=== PATIENT | male | born 2000 | race Caucasian/White ===

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

== ENCOUNTER 2021-05-11 01:11 | Observation (INO) ==
[2021-05-11] MEDS ORDERED: SODIUM CHLORIDE 0.9% 1000ML 1,000 ML IV STA (01:24)
[2021-05-11] MEDS ORDERED: ONDANSETRON INJ 2 MG/ML 2 ML VIAL IV STA (01:24)
[2021-05-11] MEDS ORDERED: MoRPHine SULFATE 4 MG/ML 1 ML CARP\\VIAL IV STA (01:24)
--- NOTE | 2021-05-11 01:28 | Emergency Department Note ---
Impression & Plan Abdominal pain, Acute appendicitis ADMIT ED Provider Note HPI: The patient is a 21-year-old male presents to the emergency department with a chief complaint of abdominal pain. Patient states that about 6 to 7 hours prior to presentation he developed some periumbilical abdominal discomfort, states he has had some nausea. States the pain has worsens and moved somewhat to the right side of his abdomen. On arrival to the ED the patient is tachycardic but otherwise hemodynamically stable, he is saturating well on room air. ROS: - GI: Abdominal pain, right lower quadrant *10 point review systems was conducted and is otherwise negative unless stated above *Outpatient medications and allergy history reviewed PE: General: Alert, NAD HEENT: Normocephalic, atraumatic Eyes: Extraocular eye movement is intact, no scleral erythema Pulmonary: Clear to auscultation bilaterally, no wheezing Cardio: Regular rate and rhythm GI: Abdomen is soft, Moderate tenderness in the right lower quadrant to palpation Without guarding or rigidity : No suprapubic tenderness MSK: No evidence of trauma or malformation of the extremities, no edema Skin: No evidence of rash Neuro: Alert, no focal deficits Psychiatric: Cooperative nurse monitoring: - An order was placed for continuous cardiac monitoring - Patient was noted to be in sinus rhythm with rate of 100 CT ABDOMEN & PELVIS With Contrast: Mild dilatation of the appendix measuring 8 mm with minimal adjacent stranding. No evidence of perforation. Findings may be due to appendicitis. Consider c orrelation with laboratory values and physical exam. No evidence of perforation. Colonic diverticulosis. Cholecystectomy changes. Apparent bladder wall thickening which is favored to relate to underdistention. Mild respiratory motion artifact. Radiologist: Hussain Miguel MD Medical Decision Making: The patient is a 21-year-old male who presents emergency department chief complaint of right lower quadrant abdominal pain. States he is also had some nausea. Denies any vomiting or diarrhea.IV was established, lab work obtained, patient is noted to have a leukocytosis of approximately 16,000, patient was given morphine and Zofran here in the ED for his symptoms, he was also given IV fluid bolus. CT imaging of the abdomen pelvis was obtained and shows evidence of acute appendicitis with dilation of the appendix at 8 mm without any evidence of perforation or abscess. Given the patient's location of his pain with leukocytosis and this finding on CT imaging I do believe he likely has acute appendicitis. I discussed the case with on-call general surgery, Dr. Pickett, who is in agreement to evaluate the patient for operative intervention. Patient will be admitted to the general surgery service, COVID-19 test was ordered. I discussed the above findings with the patient and his mother at the bedside, he is in agreement for operative intervention and admission. Patient was admitted in stable condition. Diagnosis: 1. Acute appendicitis 2. Acute abdominal pain 3. Nausea Disposition: Admission Kaden Alexander DO Emergency Medicine Past Med/Surg History Social History Smoking Status: Current some day smoker Preferred Language: Nigerian Feels Safe at Home: Yes Allergies Allergies Allergy/AdvReac Type Severity Reaction Status Date / Time No Known Allergies Allergy Unverified 06/24/16 17:14 Home Meds Home Medications Medication Instructions Recorded Confirmed No Known Home Medications 05/11/21 05/11/21 Results & Data (ED) Vital Signs Vital Signs - 24 hr 05/11/21 01:19 05/11/21 01:34 05/11/21 02:00 Temperature 36.9 C Temperature Source Temporal Artery Scan Pulse Rate 111 H 87 Respiratory Rate 18 18 Respiratory Depth Normal Blood Pressure 157/87 H 144/91 H Blood Pressure Mean 110 108 Pulse Oximetry 98 97 97 Oxygen Delivery Method Room Air Room Air Sepsis Recent Fever Within 48 Hours No Sepsis New/Unexplained Change in Mental Status N/A Sepsis Action Taken by Nursing No Action Required Laboratory Data Result diagrams: 05/11/21 01:35 05/11/21 01:35 Lab Results 05/11/21 05/11/21 05/11/21 Range/Units 01:35 01:35 01:40 WBC 16.09 H (4.8-10.8) K/uL RBC 5.74 (4.7-6.1) M/uL Hgb 17.7 (14.0-18.0) g/dL Hct 49.1 (42-52) % MCV 85.5 (80-100) fL MCH 30.8 (25-34) pg MCHC 36.0 (32-36) g/dL RDW Std Deviation 41.4 (36.4-46.3) fL RDW Coeff of Mukund 13.4 (11.5-14.5) % Plt Count 221 (130-400) K/uL MPV 10.7 H (7.4-10.4) fL Immature Gran % (Auto) 0.1 % Neut % (Auto) 75.5 % Lymph % (Auto) 17.4 % [place] % (Auto) 6.3 % Eos % (Auto) 0.5 % Baso % (Auto) 0.2 % Neut # (Auto) 12.13 H (1.4-6.5) K/uL Lymph # (Auto) 2.80 (1.2-3.4) K/uL [place] # (Auto) 1.02 H (0.11-0.59) K/uL Eos # (Auto) 0.08 (0-0.5) K/uL Baso # (Auto) 0.04 (0-0.2) K/uL Immature Gran # (Auto) 0.02 (0.00-0.02) K/uL Sodium 137 (136-145) mmol/L Potassium 3.4 L (3.5-5.1) mmol/L Chloride 101 (98-107) mmol/L Carbon Dioxide 27 (21-32) mmol/L Anion Gap 9 (3-11) BUN 16 (6-23) mg/dl Creatinine 0.85 (0.6-1.4) mg/dl Est Cr Clr Drug Dosing 186.4 ml/min Est GFR ( Amer) 144.4 ml/min Est GFR (Non-Af Amer) 124.6 ml/min BUN/Creatinine Ratio 18.8 (10-20) Glucose 93 (70-99(Fasting)) mg/dl Calcium 9.4 (8.5-10.1) mg/dl Total Bilirubin 1.0 (0.2-1.0) mg/dl AST 19 (13-39) U/L ALT 39 (7-52) U/L Alkaline Phosphatase 93 (34-104) U/L Total Protein 7.7 (6.0-8.3) gm/dl Albumin 4.9 (3.4-5.0) gm/dl Globulin 2.8 (2.5-4.0) gm/dl Albumin/Globulin Ratio 1.8 (0.9-2) Lipase 17 (11-82) U/L Urine Color Yellow Urine Appearance Clear (Clear) Urine pH 6.5 (4.5-7.5) Ur Specific [place] 1.024 (1.000-1.030) Urine Protein Negative (Negative) Urine Glucose (UA) Negative (Negative) Urine Ketones Trace H (Negative) Urine Blood Negative (Negative) Urine Nitrite Negative (Negative) Urine Bilirubin Negative (Negative) Urine Urobilinogen Negative (Negative) Ur Leukocyte Esterase Negative (Negative) Administered Medications Discontinued Medications Sodium Chloride (Nss 1000ml) 1,000 mls @ 999 mls/hr IV .Q1H1M STA Stop: 05/11/21 02:24 Last Infusion: 05/11/21 02:53 Dose: 0 mls/hr Documented by: [id number] Admin: 05/11/21 01:43 Dose: 999 mls/hr Documented by: [id number] Ioversol (Optiray 320 100ml) 95 ml IV ONCE ONE Stop: 05/11/21 02:37 Last Admin: 05/11/21 02:33 Dose: 95 ml Documented by: [id number] Morphine Sulfate (Morphine Sulfate 4 Mg/Ml 1 Ml Carp\Vial) 4 mg IV NOW STA Stop: 05/11/21 01:25 Last Admin: 05/11/21 01:43 Dose: 4 mg Documented by: [id number] Ondansetron HCl (Ondansetron Inj 2 Mg/Ml 2 Ml Vial) 4 mg IV NOW STA Stop: 05/11/21 01:25 Last Admin: 05/11/21 01:42 Dose: 4 mg Documented by: [id number] Discharge Plan Visit Data Chief Complaint: GI Assessment Stated Complaint: ABD PAIN,NAUSEA,CONSTIPATION ED Provider: Kaden Alexander Discharge Problem: Abdominal pain, Acute appendicitis Forms Stand Alone Forms: [facility] [employer] Prescriptions Prescriptions: No Action No Known Home Medications RF: 0 Referrals Referrals: Ernesto Cortez [Outside Practitioners] -
[2021-05-11 01:53] LABS: Basophils # (auto) 0.04 K/uL (0-0.2); Basophils % (auto) 0.2 %; Eosinophils # (auto) 0.08 K/uL (0-0.5); Eosinophils % (auto) 0.5 %; Hematocrit (blood only) 49.1 % (42-52); Hemoglobin 17.7 g/dL (14.0-18.0); Immature Granulocytes # (auto) 0.02 K/uL (0.00-0.02); Immature Granulocytes % (auto) 0.1 %; Lymphocytes % (auto) 17.4 %; Mean Corpuscular Hemoglobin 30.8 pg (25-34); Mean Corpuscular Volume 85.5 fL (80-100); Mean Platelet Volume 10.7 fL (7.4-10.4); Monocytes # (auto) 1.02 K/uL (0.11-0.59); Monocytes % (auto) 6.3 %; Neutrophils # (auto) 12.13 K/uL (1.4-6.5); Neutrophils % (auto) 75.5 %; Platelet Count 221 K/uL (130-400); RDW Coefficient of Variation 13.4 % (11.5-14.5); RDW Standard Deviation 41.4 fL (36.4-46.3); Red Blood Count 5.74 M/uL (4.7-6.1); White Blood Count 16.09 K/uL (4.8-10.8)
[2021-05-11 01:58] LABS: Appearance Urine Clear (Clear); Bilirubin Urine Negative (Negative); Blood Urine Negative (Negative); Color Urine Yellow; Glucose Urine UA Negative (Negative); Ketones Urine Trace (Negative); Leukocyte Esterase Urine Negative (Negative); Nitrite Urine Negative (Negative); Protein Urine Negative (Negative); Specific Gravity Urine 1.024 (1.000-1.030); Urobilinogen Urine Negative (Negative); pH Urine 6.5 (4.5-7.5)
[2021-05-11 02:24] LABS: Albumin Globulin Ratio 1.8 (0.9-2); Albumin Level 4.9 gm/dl (3.4-5.0); BUN Creatinine Ratio 18.8 (10-20); Calcium 9.4 mg/dl (8.5-10.1); Creatinine Clr Calc Pharmacy 186.4 ml/min; Est GFR (African American) 144.4 ml/min; Est GFR (Non-African American) 124.6 ml/min; Globulin 2.8 gm/dl (2.5-4.0); Potassium 3.4 mmol/L (3.5-5.1); Total Protein 7.7 gm/dl (6.0-8.3)
[2021-05-11] MEDS ORDERED: OPTIRAY 320 100ml IV ONE (02:36)
[2021-05-11] MEDS ORDERED: PIPERACILL/TAZOBAC CONSULT ACTIVE PRN (03:25)
[2021-05-11] MEDS ORDERED: SODIUM CHLORIDE 0.9% 1000ML 1,000 ML IV ONE (03:25)
[2021-05-11] MEDS ORDERED: PIPERACILLIN/TAZOBACTAM 4.5 GM/120 ML BAG IV ONE (03:25)
[2021-05-11] MEDS ORDERED: CIPROFLOXACIN / D5W 400 MG/200 ML BAG IV STA (03:57)
--- NOTE | 2021-05-11 04:36 | Surgery Consultation ---
Date of Consultation May 11, 2021 Assessment & Plan (1) Acute appendicitis: pt is a 21 year-old male who presents to ER with one day history acute abdominal pain, IMP: acute appendicitis, plan, I recommend to do laparoscopic appendectomy, possible open , D/W benefits, risks and alternatives of the surgery, the risks- infection, bleeding, injury other organs, abscess, incisional hernia, pt understood, he agrees with the surgery, he signed informed consent, I answered all questions, pre-op antibiotic. History of Present Illness Reason for Consultation: acute appendicitis Requesting Physician: Kaden Alexander MD History of Present Illness HPI: The patient is a 21-year-old male presents to the emergency department with a chief complaint of abdominal pain. Patient states that about 6 to 7 hours prior to presentation he developed some periumbilical abdominal discomfort, states he has had some nausea. States the pain has worsens and moved somewhat to the right side of his abdomen. On arrival to the ED the patient is tachycardic but otherwise hemodynamically stable, he is saturating well on room air. I ( Bonilla Pickett MD ) got a call for consult acute appendicitis, I reviewed pt's H/P, labs, CT scan with pt, pt is still Have RLQ pain, ROS: - GI: Abdominal pain, right lower quadrant *10 point review systems was conducted and is otherwise negative unless stated above *Outpatient medications and allergy history reviewed Past Med/Surg History Social History Smoking Status: Current some day smoker Preferred Language: Trinidadian Feels Safe at Home: Yes Allergies Allergies Allergy/AdvReac Type Severity Reaction Status Date / Time No Known Allergies Allergy Unverified 06/24/16 17:14 Home Meds Home Medications Medication Instructions Recorded Confirmed No Known Home Medications 05/11/21 05/11/21 Results & Data (ED) Vital Signs Vital Signs - 24 hr 05/11/21 01:19 05/11/21 01:34 05/11/21 02:00 TemperatureC 36.9 C Temperature Source Temporal Artery Scan Pulse Rate 111 H 87 Respiratory Rate 18 18 Respiratory Depth Normal Blood Pressure 157/87 H 144/91 H Blood Pressure Mean 110 108 Pulse Oximetry 98 97 97 Oxygen Delivery Method Room Air Room Air Sepsis Recent Fever Within 48 Hours No Sepsis New/Unexplained Change in Mental Status N/A Sepsis Action Taken by Nursing No Action Required Allergies Allergy/AdvReac Type Severity Reaction Status Date / Time No Known Allergies Allergy Unverified 06/24/16 17:14 Home Medications Medication Instructions Recorded Confirmed Type No Known Home Medications 05/11/21 05/11/21 History Patient History Social History Smoking Status: Current some day smoker Preferred Language: Trinidadian Feels Safe at Home: Yes Physical Exam Constitutional: WD/WN, vitals as above Eyes: PERRL, conjunctivae normal, anicteric sclerae Neck: trachea midline, no thyromegaly Respiratory: normal respiratory effort, lungs clear to auscultation Cardiovascular: RRR, no murmur, no edema Gastrointestinal (Abdomen): soft, tenderness at RLQ, no rebound pain, BS +, no distend Musculoskeletal: no cyanosis or clubbing, extremities motor strength 5/5 Neurologic: patellar DTR's 2+ bilat, sensation intact Psychiatric: A+Ox3, euthymic affect Results & Data ([facility]) Vital Signs (Past 12 Hours) Vital Signs Temp Pulse Resp BP Pulse Ox 05/11/21 03:00 79 16 139/80 98 05/11/21 02:00 87 18 144/91 H 97 05/11/21 01:34 97 05/11/21 01:19 36.9 C 111 H 18 157/87 H 98 Laboratory Results Abnormal lab results 05/11/21 05/11/21 05/11/21 Range/Units 01:35 01:35 01:40 WBC 16.09 H (4.8-10.8) K/uL MPV 10.7 H (7.4-10.4) fL Neut # (Auto) 12.13 H (1.4-6.5) K/uL [place] # (Auto) 1.02 H (0.11-0.59) K/uL Potassium 3.4 L (3.5-5.1) mmol/L Urine Ketones Trace H (Negative) Diagnostic Findings CT ABDOMEN & PELVIS With Contrast: Mild dilatation of the appendix measuring 8 mm with minimal adjacent stranding. No evidence of perforation. Findings may be due to appendicitis. Consider correlation with laboratory values and physical exam. No evidence of perforation. Colonic diverticulosis. Cholecystectomy changes. Apparent bladder wall thickening which is favored to relate to underdistention. Mild respiratory motion artifact. (1) Acute appendicitis Acute appendicitis type: unspecified acute appendicitis type Qualified Code(s): K35.80 - Unspecified acute appendicitis
--- NOTE | 2021-05-11 04:46 | History & Physical Bridge Note ---
Date of Service May 11, 2021 History & Physical Bridge Note I have examined the patient, reviewed the History & Physical and in the interval since the performance of the History & Physical I have noted the following changes of clinical significance: no changes noted
[2021-05-11] MEDS ORDERED: BUPIVACAINE 0.5 % 5 MG/1 ML MPF 30ML VIAL ONE (05:15)
[2021-05-11] MEDS ORDERED: BACITRACIN OINT 15 GM TUBE ONE (05:15)
[2021-05-11] MEDS ORDERED: LIDOCAINE 1% LOCAL 20 ML VIAL ONE (05:15)
[2021-05-11] MEDS ORDERED: ONDANSETRON INJ 2 MG/ML 2 ML VIAL IV PRN ×2 (05:25→06:49)
[2021-05-11] MEDS ORDERED: ePHEDrine sulfate 50 MG/ML AMP IV PRN (05:25)
[2021-05-11] MEDS ORDERED: ATROPINE SULFATE 0.1 MG/ML 10ML SYR IV PRN (05:25)
[2021-05-11] MEDS ORDERED: PROMETHAZINE HCL 6.25 MG in SODIUM CHLORIDE 0.9% 50 ML IV PRN (05:25)
--- NOTE | 2021-05-11 05:27 | Anesthesiology Consultation ---
Date of Service May 11, 2021 Assessment & Plan Chart Review Chart Review: Acceptable Risk for Surgery and Patient NOT seen in Pre Admission Testing Consults Requested none ASA ASA2E Proposed Anesthesia Anesthesia Type: General Risk / Benefits Reviewed With: PT / POA / Parent / Guardian, Accepts Plan and Informed Consent Obtained History Surgery Operation Date: 05/11/21 05:05 Proposed Procedures p Laparoscopic Appendectomy - Bonilla Pickett MD Height/Weight Height: 6 ft Weight: 123.3 kg Allergies Allergy/AdvReac Type Severity Reaction Status Date / Time No Known Allergies Allergy Unverified 06/24/16 17:14 Medications Home Medications Medication Instructions Recorded Confirmed Last Taken No Known Home Medications 05/11/21 05/11/21 Unknown Active Medications Generic Name Dose Route Start Last Admin Trade Name Freq PRN Reason Stop Dose Admin Ciprofloxacin 400 mg in 200 mls @ 100 mls/hr 05/11/21 03:57 05/11/21 04:06 Cipro / D5w IV 05/11/21 05:56 100 mls/hr NOW STA Administration Protocol NPO Date Last Intake of Fluids: 05/10/21 Time Last Intake of Fluids: 23:50 Date Last Intake of Solids: 05/10/21 Time Last Intake of Solids: 17:00 Exercise / Class Metabolic Activity II 4-5 Yardwork/Stairs/Walk up hill Past Anesthesia History No Hx of Anesthesia Complications and No Family Hx of Anesthesia Complications History of PONV No Hx of PONV and No Hx of Motion Sickness Social History Smoking Status: Current some day smoker Physical Exam Vital Signs Last Vital Signs Temp 36.9 C 05/11/21 01:19 Pulse 81 05/11/21 05:00 Resp 16 05/11/21 05:00 BP 155/86 H 05/11/21 04:00 Pulse Ox 98 05/11/21 04:00 Constitutional + obese ENMT Mouth: no dentition abnormality Thyromental Distance: > or= 3.5 Finger Breadths Mallampati Class: II Neck normal visual inspection and + facial hair Respiratory normal respiratory effort Auscultation: lungs clear to auscultation bilaterally Cardiovascular Rate/Rhythm: regular rate and regular rhythm Psychiatric Orientation: alert Testing Laboratory Results 05/11/21 01:35 05/11/21 01:35 Urine Color Yellow 05/11/21 01:40 Urine Appearance Clear (Clear) 05/11/21 01:40 Urine pH 6.5 (4.5-7.5) 05/11/21 01:40 Ur Specific [place] 1.024 (1.000-1.030) 05/11/21 01:40 Urine Protein Negative (Negative) 05/11/21 01:40 Urine Glucose (UA) Negative (Negative) 05/11/21 01:40 Urine Ketones Trace (Negative) H 05/11/21 01:40 Urine Nitrite Negative (Negative) 05/11/21 01:40 Ur Leukocyte Esterase Negative (Negative) 05/11/21 01:40
[2021-05-11] MEDS ORDERED: fentaNYL citrate 100 MCG/2 ML VIAL ONE (05:40)
[2021-05-11] MEDS ORDERED: MoRPHine SULFATE PF 1 MG/ML 10 ML AMP/VIAL ONE (05:57)
[2021-05-11] MEDS ORDERED: SUCCINYLCHOLINE CHLORIDE 20 MG/ML 10 ML VIAL IV ONE (06:27)
[2021-05-11] MEDS ORDERED: NEOSTIGMINE METHYLSULFATE 1 MG/ML 10ML VIAL ONE (06:27)
[2021-05-11] MEDS ORDERED: GLYCOPYRROLATE 0.2 MG/ML VIAL ONE (06:27)
[2021-05-11] MEDS ORDERED: LIDOCAINE 2% 2 ML VIAL/AMP(20MG/ML) INFIL ONE (06:27)
[2021-05-11] MEDS ORDERED: PROPOFOL IV EMULSION 10 MG/ML 20 ML VIAL IV ONE (06:27)
[2021-05-11] MEDS ORDERED: ROCURONIUM BROMIDE 10 MG/ML 5 ML VIAL IV ONE (06:27)
[2021-05-11] MEDS ORDERED: DEXAMETHASONE SOD INJ 4 MG/ML VIAL ONE (06:27)
[2021-05-11] MEDS ORDERED: ONDANSETRON INJ 2 MG/ML 2 ML VIAL ONE (06:27)
--- NOTE | 2021-05-11 06:48 | Post Operative Brief Note ---
Immediate Post Op Note v1 Date of Surgery May 11, 2021 Pre & Post Diagnosis Operation Date: 05/11/21 05:05 Pre-Op Diagnosis: Acute appendicitis Post-Op Diagnosis: Acute appendicitis I identified the patient and participated in the time-out.: Yes Procedure Operation Date: 05/11/21 05:05 Actual Procedures p Laparoscopic Appendectomy(Not Applicable) - Bonilla Pickett MD Surgeon Bonilla Pickett MD [employer] certified surgical tech/first assistant Estimated Blood Loss 10 Findings Consistent with Post-Op Diagnosis Specimens appendix Anesthesia Type General Complications none Disposition Accompanied Patient To Recovery: Yes
--- NOTE | 2021-05-11 06:55 | Anesthesiology Progress Note ---
Date of Service May 11, 2021 Anesthesia Post Procedure Vital Signs Vital Signs: Temp Pulse Pulse Resp BP BP Pulse Ox 05/11/21 06:46 36.0 C L 78 14 152/84 H 98 05/11/21 05:30 78 18 136/86 98 05/11/21 05:00 81 16 05/11/21 04:00 78 15 155/86 H 98 05/11/21 03:00 79 16 139/80 98 05/11/21 02:00 87 18 144/91 H 97 05/11/21 01:34 97 05/11/21 01:19 36.9 C 111 H 18 157/87 H 98 Pain Intensity Abdomen: Pain Intensity: 5 Transfer of Care Handoff Completed per policy Notes Mental Status: alert / awake / arousable Patient Amnestic to Procedure: Yes Nausea / Vomiting: adequately controlled Pain: adequately controlled Airway Patency, RR, SpO2: stable & adequate BP & HR: stable & adequate Hydration State: stable & adequate Anesthetic Complications: no major complications apparent
[2021-05-11] MEDS: fentaNYL citrate 100 MCG/2 ML VIAL IV PRN ×2 (07:03→07:30)
[2021-05-11] MEDS ORDERED: LACTATED RINGER'S 1,000 ML IV SCH (08:18)
[2021-05-11] MEDS ORDERED: oxyCODONE/ACETAMINOPHEN 5mg/325mg TAB PO PRN (08:18)
[2021-05-11] MEDS ORDERED: HYDROmorphone INJ 0.5 MG/0.5 ML SYR IV PRN (08:18)
--- NOTE | 2021-05-11 08:21 | CT Scan Report ---
CT OF THE ABDOMEN AND PELVIS WITH CONTRAST CLINICAL HISTORY: Right lower quadrant abdominal pain. COMPARISON STUDY: None. TECHNIQUE: Following IV administration of 95 mL of Optiray, axial images of the abdomen and pelvis we re obtained from the lung bases to the proximal femurs. Images were reviewed in the axial, sagittal, and coronal planes. IV contrast was administered without complication. Automated exposure control wa s utilized for the study. A dose lowering technique was utilized adhering to the principles of ALARA . CT DOSE: 1314.74 mGy.cm FINDINGS: Lung bases are unremarkable. No pneumatosis, free air or portal venous gas is present. Ther e is no biliary ductal dilatation status post cholecystectomy. Possible hepatic steatosis. Spleen is mildly enlarged. The adrenal glands, kidneys and pancreas are normal. There is no hydronephrosis. The re is no evidence for a bowel obstruction. The appendix is mildly dilated, measuring 9 mm in caliber. There is subtle periappendiceal infiltration. The appendiceal wall is thickened. There is no free ai r or abscess. Colonic diverticulosis is noted without evidence for acute diverticulitis. Major vascul ature is patent. No acute fracture or suspicious lesion is identified within the visualized skeletal structures. IMPRESSION: Findings consistent with early acute appendicitis. No free air or abscess. ACT 112: Negative or not required by law. Electronically signed by: Raudel Connolly M.D. 05/11/2021 8:19 AM
[2021-05-11] MEDS ORDERED: CIPROFLOXACIN / D5W 400 MG/200 ML BAG IV SCH ×2 (08:45→12:00)
[2021-05-11] MEDS ORDERED: SUCRALFATE 1 GM TAB PO SCH (09:30)
[2021-05-11] MEDS ORDERED: CHOLESTYRAMINE LIGHT 4 GM PKT PO SCH (10:00)
--- NOTE | 2021-05-11 10:45 | Operative Report (OR) ---
DATE OF SURGERY: 05/11/2021 PREOPERATIVE DIAGNOSIS: Acute appendicitis. POSTOPERATIVE DIAGNOSIS: Acute appendicitis. OPERATION: Laparoscopic appendectomy. SURGEON: Bonilla Pickett MD. ANESTHESIA: General. ESTIMATED BLOOD LOSS: About 10 mL. FINDINGS: Acute appendicitis. COMPLICATIONS: None. INDICATIONS OF THE PROCEDURE: This is a 21-year-old gentleman who presented to the ED with 1-day his tory of acute abdominal pain. The patient had a CT scan diagnosis of acute appendicitis. I recommen ded to do laparoscopic appendectomy, possible open. I did talk to the patient about the benefit, ris k, alternate procedure. I indicated the risks may include, but not limited to, such as bleeding, inf ection, abscess, injury to other organs, incisional hernia. The patient understands. He signed info rmed consent and I answered all questions. DETAILS OF PROCEDURE: After we identified the patient and verified the procedure, we brought the pat ient to the OR and put the patient in the supine position on the OR table. The patient received SCD on bilateral legs to prevent DVT. Also, patient received 400 mg of Cipro IV for prophylactic antibio tic and the patient received general anesthesia without difficulty. The abdomen was prepped and drap ed in routine sterile fashion. After timeout, I injected the local anesthesia by using 1% lidocaine mixed with 0.5% Marcaine just above the umbilicus, then I made a small incision just above umbilicus, opened fascia, opened peritoneum. Under direct vision, put a Rylan trocar in, connected to CO2 to create pneumoperitoneum, flow rate at 6 liters per minute, pressure not more than 14 mmHg. Once we got a nice pneumoperitoneum, we put a camera in, looked around the abdomen, it shows normal f inding on the small bowel and large bowel; however, the appendix showed significant inflammation with enlargement, confirmed diagnosis of acute appendicitis. Once we confirmed the diagnosis, I put anot her two 5 mm trocars in the left lower quadrant area. Once all trocars in, we used the Harmonic to t elicia down the appendiceal, rechecked, no active bleeding. Then, we used a 45 mm Endo-YUDELKA stapler for transection on the base of appendix, rechecked the staple line, intact and no leak, no active bleedin g. Then, we removed appendix through the catch bag. Then, we reinserted the Rylan trocar in, connected to CO2 to create pneumoperitoneum, again looked a round the abdomen, no active bleeding, no leak from the staple line. Then, we removed all trocars un chantal direct vision. No active bleeding from the trocar site. Pneumoperitoneum was released, then I c losed the umbilical incision fascial layer by using 0 Vicryl [id number] x2, closed subcutaneous layer by using 2-0 Vicryl interruptedly, closed skin by using 4-0 Vicryl continuous running, closed a nother two 5 mm trocar site of skin only by using 4-0 Vicryl. Then, we put the dressing on. The patient tolerated the procedure well. All instrument, needle and sponge counts were correct x2 a t the end of the case. The patient was transferred to recovery room in stable condition. The specim en was sent to pathology. After the procedure, I did talk to the patient and patient's family member about the OR finding and the procedure we did, they understand. Job ID: [id number]
--- NOTE | 2021-05-11 14:56 | Surgery Progress Note ---
Date of Service May 11, 2021 Assessment & Plan (1) Acute appendicitis: Plan: pt is a 21 year-old male who presents to ER with one day history acute abdominal pain, IMP: acute appendicitis, plan, I recommend to do laparoscopic appendectomy, possible open , D/W benefits, risks and alternatives of the surgery, the risks- infection, bleeding, injury other organs, abscess, incisional hernia, pt understood, he agrees with the surgery, he signed informed consent, I answered all questions, pre-op antibiotic. 05/11/2021 2:54PM, Dr. Pickett F/U S/P lap appy, POD 8 hours, pt is doing fine, pt wants to go home today, the post-op care instruction was given, F/U me 2 weeks, Admission and Anticipated Discharge Date Admission Date: May 11, 2021 Subjective F/U S/P laparoscopic appendectomy, POD 8 hours, pt is doing fine, good control incision pain, tolerated clear diet, no nausea, no vomiting, no fever, Physical Exam Constitutional: WD/WN, vitals as above Eyes: PERRL, conjunctivae normal, anicteric sclerae Neck: trachea midline, no thyromegaly Respiratory: normal respiratory effort, lungs clear to auscultation Cardiovascular: RRR, no murmur, no edema Gastrointestinal (Abdomen): soft, mild tenderness at incision site, no rebound pain, no distend, all incisions intact, no redness, BS + Musculoskeletal: no cyanosis or clubbing, extremities motor strength 5/5 Neurologic: patellar DTR's 2+ bilat, sensation intact Psychiatric: A+Ox3, euthymic affect Results & Data ([facility]) Vital Signs (Past 12 Hours) Vital Signs Temp Pulse Pulse Resp BP BP Pulse Ox 05/11/21 11:17 36.6 C 96 H 18 136/76 97 05/11/21 10:05 36.4 C L 82 16 122/76 96 05/11/21 09:28 76 16 122/73 96 05/11/21 08:35 36.7 C 99 H 16 131/61 95 05/11/21 08:05 36.6 C 80 16 125/83 93 05/11/21 07:40 52 L 14 128/72 95 05/11/21 07:25 56 L 14 148/65 H 96 05/11/21 07:15 36.1 C L 66 14 130/77 96 05/11/21 07:05 60 14 145/73 H 94 05/11/21 06:55 64 14 144/78 H 94 05/11/21 06:46 36.0 C L 78 14 152/84 H 98 05/11/21 05:30 78 18 136/86 98 05/11/21 05:00 81 16 05/11/21 04:00 78 15 155/86 H 98 05/11/21 03:00 79 16 139/80 98 (1) Acute appendicitis Acute appendicitis type: unspecified acute appendicitis type Qualified Code(s): K35.80 - Unspecified acute appendicitis
--- NOTE | 2021-05-11 23:13 | Discharge Summary (DS) ---
DATE OF ADMISSION: 05/11/2021 DATE OF DISCHARGE: 05/11/2021 ADMISSION DIAGNOSIS: Acute appendicitis. DISCHARGE DIAGNOSIS: Acute appendicitis. OPERATION: Laparoscopic appendectomy. SURGEON: Bonilla Pickett MD. DETAILS OF DISCHARGE SUMMARY: This is a 21-year-old gentleman who presented to ED with acute abdomin al pain. The patient had a CT scan diagnosis of acute appendicitis. We took the patient to the OR, we did laparoscopic appendectomy. The patient tolerated the procedure well and the patient was trans ferred to recovery room and later on transferred to regular floor. The patient is doing fine. He to lerated a diet. No nausea, no vomiting. Good control of incision pain by p.o. pain medication. PHYSICAL EXAMINATION: VITAL SIGNS: Temperature is 36.6, respiratory rate 18, heart rate 96, blood pressure is 136/76, O2 s aturation 97% on room air. GENERAL: The patient is alert, awake, oriented x3. HEENT: Within normal limitation. NEUROLOGIC: Intact. NECK: No JVD. CHEST: Bilateral lung sounds clear. HEART: Normal S1 and S2. No murmur. ABDOMEN: Soft, mild tenderness on the incision site. No rebound pain, no distention. All incisions intact. No redness. Bowel sounds positive. EXTREMITIES: No edema. The patient wanted to go home today. We gave the patient postop care instruction. I will follow up the patient in 2 weeks. The patient understands. Job ID: [id number]
== END 2021-05-11 17:56 | disposition home or self-care (01) ==
LOC: ED 01:11 → 3E 05:39 → OR 05:39 → 3E 15:30